=== PATIENT | female | born 1955 | race Caucasian/White ===

== ENCOUNTER 2022-10-21 10:16 | Outpatient (CLI) | payer MEDICARE, OTHER, SELFPAY ==
[2022-10-21 12:23] LABS: Cholesterol* 231 mg/dL (90-199)
[2022-10-21 12:24] LABS: HDL Cholesterol* 87 mg/dL (>=50); LDL Cholesterol Calculated 71 mg/dL (<100); Triglycerides* 367 mg/dL (40-149)
[2022-10-24 17:07] LABS: Glucose* 108 mg/dL (60-115)
== END 2022-10-21 10:17 | disposition home or self-care (01) ==
LOC: NFLDREF 10:17
PROVIDERS: PCP Internal Medicine; Visit Provider Internal Medicine
DX: Z00.00 Encounter for general adult medical examination without abnormal findings (principal); E78.5 Hyperlipidemia, unspecified; R73.03 Prediabetes; E66.01 Morbid (severe) obesity due to excess calories
CPT/HCPCS: 80061; 82947

== ENCOUNTER 2022-11-15 13:02 | Outpatient (CLI) | payer MEDICARE, OTHER, SELFPAY ==
--- NOTE | 2022-11-15 13:20 | CRLHL7_ITS ---
For Patients: As a result of the Century Cures Act, medical imaging exams and procedure reports are released immediately into your electronic medical record. You may view this report before your referring provider. If you have questions, please contact your health care provider. BILATERAL SCREENING MAMMOGRAM WITH COMPUTER-AIDED DETECTION AND TOMOSYNTHESIS TECHNIQUE: CC and MLO views were obtained. These mammographic images have been obtained using full-field digital technique. These mammographic images were interpreted with the benefit of computer-aided detection. Breast Tomosynthesis was used in this interpretation. COMPARISON FILM: 10/08/21, 08/23/20, 07/06/19. FINDINGS: There are scattered areas of fibroglandular density IMPRESSION: There is no radiographic evidence for malignancy. ASSESSMENT: BI-RADS Category 1: Negative RECOMMENDATION: Routine screening mammogram in 1 year. A lay language report of this examination will be provided to the patient. Silvestre Joseph M.D. Diagnostic/Nuclear Medicine Radiologist [email or web address] JOHN/Dictated by: Silvestre Joseph MD @ 11/18/2022 8:49:00 AM (Electronically Signed)
== END 2022-11-15 13:03 | disposition home or self-care (01) ==
LOC: MAMMO 13:04
PROVIDERS: PCP Internal Medicine; Visit Provider Internal Medicine
DX: Z12.31 Encounter for screening mammogram for malignant neoplasm of breast (principal)
CPT/HCPCS: 77063; 77067

== ENCOUNTER 2023-06-05 11:44 | Outpatient (CLI) | payer MEDICARE, OTHER, BC, SELFPAY ==
--- NOTE | 2023-06-05 13:08 | W.ANESCHARGE ---
Anesthesia Charges Start Date/Time Anesthesia Start Date: 06/05/23 Anesthesia Start Time: 12:35 Stop Date/Time Anesthesia Stop Date: 06/05/23 Anesthesia Stop Time: 13:07
--- NOTE | 2023-06-05 13:13 | W.ANESCHARGE ---
Anesthesia Charges Start Date/Time Anesthesia Start Date: 06/05/23 Anesthesia Start Time: 12:35 Stop Date/Time Anesthesia Stop Date: 06/05/23 Anesthesia Stop Time: 13:07
== END 2023-06-05 11:45 | disposition home or self-care (01) ==
LOC: OP CLINIC 11:44
PROVIDERS: PCP Internal Medicine; Visit Provider Surgery
DX: Z12.11 Encounter for screening for malignant neoplasm of colon (principal); K63.5 Polyp of colon; K57.30 Diverticulosis of large intestine without perforation or abscess without bleeding; K64.9 Unspecified hemorrhoids; Z86.010 Personal history of colon polyps
CPT/HCPCS: 00811; 45385; 88305; J2704

== ENCOUNTER 2023-10-23 09:50 | Outpatient (CLI) | payer MEDICARE, BC, SELFPAY ==
--- OUTSIDE RECORDS SUMMARY | 2023-10-24 06:15 | XMS_ITS | Clinical Summary ---
Author Name Unknown Organization [facility] Address [place], [place] [address] Care Team Providers Care Studio Operator Name Role Phone Cindi Garcia Primary Care Provider Unavail able Allergies Active Allergy Reactions Criticality Noted Date Comments Chlorpheniramine-Phenylpropan Runny Nose 2014 Medications Medication Sig Dispensed Refills Start Date End Date Status fish oil-omega-3 fatty acids (FISH OIL) 1,200-360 mg cap Take 1 capsule by mouth once daily. 0 06/25/2012 Active aspirin enteric coated 81 mg tablet Take 1 tablet by mouth once daily with a meal. 0 06/25/2012 Active Cholecalciferol, Vitamin D3, 5,000 unit tab Take by mouth once daily. 0 09/21/2013 Active albuterol HFA (PRO-AIR,VENTOLIN,PRO VENTIL) 90 mcg/actuation inhaler Inhale 1-2 Puffs by mouth every 4 hours if needed. Do not fill until patient calls 1 Inhaler 0 10/10/2014 Active hydrochlorothiazide (HCTZ) 25 mg tabletIndications:Ess ential hypertension Take 1 tablet by mouth once daily. 90 tablet 0 10/30/2015 Active lisinopril (PRINIVIL; ZESTRIL) 40 mg tabletIndications:Ess ential hypertension Take 1 tablet by mouth once daily. 90 tablet 0 10/30/2015 Active citalopram (CELEXA) 20 mg tabletIndications:Dep ression, unspecified depression type Take 2 tablets by mouth every morning. 180 tablet 0 10/30/2015 Active amLODIPine (NORVASC) 5 mg tabletIndications:Ess ential hypertension Take 1 tablet by mouth once daily. 90 tablet 0 10/30/2015 Active Active Problems Problem Noted Date Diagnosed Date Adenomatous colon polyp 07/28/2012 Overview: Colonoscopy 09/2011 polyp repeat in 5 years Back pain 12/03/2011 Vitamin D deficiency 05/13/2010 Low back pain 04/30/2010 Unspecified essential hypertension 01/25/2008 Unspecified asthma(493.90) 01/25/2008 Dysthymic disorder 01/25/2008 Unspecified sleep apnea 01/25/2008 Overview: Using cpap Immunizations Name Administration Dates Next Due AMB Influenza, IIV3 (Age >=3 years)(Flu Clinic Only) 07/18/2011 AMB Influenza, IIV4 PF (=>6 mos Flulaval,Fluzone Fluarix)(Flu Clinic Only) 07/11/2014 Hepatitis A (Adult) 09/19/1998,11/19/1996 Hepatitis B (Adult) 09/19/1998,02/24/1997,1996 Influenza, IIV3 (Age >=3 years) 06/25/2013,06/25 Tdap 12/26/2006 Family History Medical History Relation Name Comments Cancer-breast Maternal Aunt Other Mother melanoma Cancer-breast Other paternal cousi n Cancer-breast Paternal Aunt Relation Name Status Comments Father leukemia Maternal Aunt Mother Other Paternal Aunt Sister lymphoma Social History Tobacco Use Types Packs/Day Years Used Date Smoking Tobacco: Former Cigarettes Q uit: 09/22/1986 Smokeless Tobacco: Never Tobacco Cessation:Counseling Given: Yes Alcohol Use Standard Drinks/Week Comments Not Asked 5.8 (1 standard drink = 0.6 oz p ure alcohol) Sex and Gender Information Value Date Recorded Sex Assigned at Not on file Gender Identity Not on file Sexual Orientation Not on file Obstetrics History Last Filed Vital Signs Vital Sign Reading Time Taken Comments Blood Pressure 130/72 10/10/2014 2:37 PM RELATIONSHIP SPECIALIST Pulse 87 10/10/2014 1:41 PM RELATIONSHIP SPECIALIST Temperature 36.8 ??C (98.2 ??F) 10/10/2014 1:41 PM CS T Respiratory Rate - - Oxygen Saturation 95% 10/10/2014 1:41 PM RELATIONSHIP SPECIALIST Inhaled Oxygen Concentration - - Weight 122.3 kg (269 lb 9.6 oz) 10/10/2014 1:41 PM RELATIONSHIP SPECIALIST Height 174 cm (5' 8.5) 10/10/2014 1:41 PM RELATIONSHIP SPECIALIST Body Mass Index 40.39 10/10/2014 1:41 PM RELATIONSHIP SPECIALIST Plan of Treatment Health Maintenance Due Date Last Done Comments COVID-19 vaccine series (#1) [birth year]25/1956 Depression screening for age 12+ 1967 BMI (ht and wt on same day) for age 18+ 1973 Zoster (shingles) series for age 50+ (1 of 2) 2005 Mammogram for age 45-75 10/10/2015 10/10/19 15, 09/21/2013, 09/18/2012, Additional history exists Tetanus booster 12/26/2016 12/26/2006 Colonoscopy through age 75 07/24/2017 07/24/2012, Lipids for age 45-75 11/01/2019 11/01/2014, 09/21/2013, 06/25/2012, Additional history exists DEXA/DXA scan for age 65+ 2020 Pneumococcal series for age 65+ (1 of 1 - PCV) 2020 Influenza for age 65+ 05/23/2023 07/11/2014 , 06/25/2013, 06/25/2012, Additional history exists Tdap Completed 12/26/2006 Hepatitis C screening for ag e 18-79 Completed 11/01/2014 Advance Directives Documents on File Type Date Recorded Patient Analysis Specialist Expl anation Healthcare Directive 02/24/2007 [place] [facility] Care Teams Studio Operator Relationship Specialty Start Date End Date Cindi Garcia PCP - General 07/17/16
== END 2023-10-23 09:51 | disposition home or self-care (01) ==
LOC: NFLDREF 10-24 06:14
PROVIDERS: PCP Internal Medicine; Referring Provider Internal Medicine; Visit Provider Internal Medicine
DX: E78.5 Hyperlipidemia, unspecified (principal); I10 Essential (primary) hypertension; R73.03 Prediabetes
CPT/HCPCS: 80048; 80061

== ENCOUNTER 2023-11-17 12:52 | Outpatient (CLI) | payer MEDICARE, BC, SELFPAY ==
--- NOTE | 2023-11-17 13:00 | MM_ITS ---
Patient: MADHAV MCELROY Facility:?[facility] Patient ID:?[id number] Site Patient ID:?[id number]. Site :?[id number] Study:?XRay-Breast Bilateral 3D W/CAD-11/17/2023 3:16:52 PM Ordering Physician:Flaquita Dumont Final Report: BILATERAL SCREENING MAMMOGRAM WITH COMPUTER-AIDED DETECTION AND TOMOSYNTHESIS TECHNIQUE: CC and MLO views were obtained. These mammographic images have been obtained using full-field digital technique. These mammographic images were interpreted with the benefit of computer-aided detection. Breast Tomosynthesis was used in this interpretation. COMPARISON FILM: 11/15/22, 10/08/21, 08/23/20. FINDINGS: There are scattered areas of fibroglandular density. IMPRESSION: There is no radiographic evidence for malignancy. ASSESSMENT: BI-RADS Category 1: Negative RECOMMENDATION: Routine screening mammogram in 1 year. A lay language report of this examination will be provided to the patient. Kavon Estrada M.D. Diagnostic Radiologist [email or web address] DSM/sp R& Transcribed: 4:38 p.m. SP/Dictated by: Kavon Estrada MD @ 11/18/2023 8:33:00 AM Signed by:?Kavon Estrada MD @11/19/2023 5:27:59 AM (Electronic Signature)
== END 2023-11-17 12:53 | disposition home or self-care (01) ==
LOC: MAMMO 12:53
PROVIDERS: PCP Internal Medicine; Visit Provider Internal Medicine
DX: Z12.31 Encounter for screening mammogram for malignant neoplasm of breast (principal)
CPT/HCPCS: 77063; 77067

== ENCOUNTER 2024-11-11 09:30 | Outpatient (CLI) | payer MEDICARE, BC, SELFPAY | END 2024-11-11 09:31 | disposition home or self-care (01) | LOC: NFLDREF 11-15 20:27 | PROVIDERS: PCP Internal Medicine; Referring Provider Internal Medicine; Visit Provider Internal Medicine | DX: E78.5 Hyperlipidemia, unspecified (principal); R73.03 Prediabetes; I10 Essential (primary) hypertension | CPT/HCPCS: 80048; 80061 ==

== ENCOUNTER 2025-02-11 14:49 | Outpatient (CLI) | payer MEDICARE, BC, SELFPAY ==
--- NOTE | 2025-02-11 15:00 | CRLHL7_ITS ---
For Patients: As a result of the Century Cures Act, medical imaging exams and procedure reports are released immediately into your electronic medical record. You may view this report before your referring provider. If you have questions, please contact your health care provider. INDICATION: BILATERAL SCREENING MAMMOGRAM, ASYMPTOMATIC 69 Y/O FEMALE COMPARISON: 11/17/2023, 11/15/2022, 10/08/2021 TECHNIQUE: Digital mammogram in CC and MLO projections including computer-aided detection (CAD) and tomosynthesis. BREAST COMPOSITION: There are scattered areas of fibroglandular density. FINDINGS: No suspicious findings. ASSESSMENT: BI-RADS 1 Negative RECOMMENDATION: Annual screening mammogram. A lay language report of this examination will be provided to the patient. Dictated by: Kavon Estrada MD @ 02/15/2025 09:03:31 (Electronically Signed)
== END 2025-02-11 14:50 | disposition home or self-care (01) ==
LOC: MAMMO 14:50
PROVIDERS: PCP Internal Medicine; Visit Provider Internal Medicine
DX: Z12.31 Encounter for screening mammogram for malignant neoplasm of breast (principal)
CPT/HCPCS: 77063; 77067

== ENCOUNTER 2025-05-17 11:00 | Outpatient (RCR) | payer MEDICARE, BC, SELFPAY ==
--- NOTE | 2024-12-07 11:24 | PT.OPEX ---
PT [place] Outpatient Eval PT [facility] Outpatient Eval Start: 12/07/24 07:08 Freq: Status: Active Protocol: Document 12/07/24 07:08 MLS (Rec: 12/07/24 11:23 MLS [id number]) E-signed By Brooke Thao DPT Physical Therapy Outpatient Evaluation Insurance Information Recert Due Date 03/06/25 Insurance Name Medicare B,Blue Cross/Blue Shield Medical Diagnosis N39.46 mixed incontinence Treating Diagnosis Mixed incontinence - stress and urge Core strengthening LBP at times Hip tightness B Referring MD Dr. Adair Partida Preferred Name Marleen Partida Patient is a 69 year old female who presents to physical therapy with signs and symptoms consistent with mixed incontinence. She states that she is always kind of damp. She states that she wears panties with liners . She states that sometimes she wakes up and her pants are damp. She states that sometimes when she moves from sit to stand after sitting a long time and has to go right away. Urinary- Leakage (day/night):7, 1 in evening Protection worn: panty with built in liner - knix Severity of leakage (amount): small Activity that causes leakage ( laughing, coughing, sneezing, garcia in door, running water etc): sometimes w laugh/cough/ sneeze, increased after sitting for long time and moves to stand Delay of urination: no Urinary urgency (any incontinence): yes Strain to start/stop urine stream: sometimes Hydration/fluid intake: 2 cups coffee, water 8 cups Daytime urination (how often): 8 Nocturia: 1 Dysuria (pain w urination): no Post-void dribble: sometimes Pressure/heaviness: no Triggers: sitting for long period of time and moves to stand Observation (color, odor, burning, blood, weak stream): no Bowel- Frequency: once a day Amelia chart: 3-4 Constipation/Diarrhea: sometimes Observation (mucus. blood): no Do you feel bowels fully evacuate with BM: yes and no, hemorrhoids all the time Fecal leakage: no Fecal urgency: no Protection used: no Straining with BM: no Pain with BM: yes - hemorrhoids (constant) Do you use pressure with hands to assist with BM: no Flatus incontinence: no Abdominal/rectal pain or symptoms: no Do foods increase or decrease symptoms: unsure Do you take bowel supplements/ laxatives: no Fiber intake: lots of fiber in diet Diet/food intolerances: no Sexual- Are you sexually active: no Menstrual History- Date of last period: mid fifties Painful periods (clotting): no Regular cycles (how long):yes Changes in symptoms correlated to cycle: no Changes after menopause: took a long time, some heavy bleeding, hot flashes Menopause age: fifties - Number of pregnancies: 2 Number of deliveries: 1 Vaginal or : vaginal Other complications: no Other- Pain with gynecological exam: last few times, never prior to that Any chronic yeast infections: not for long time Chronic UTIs: no STIs: no Vaginal dryness: no Meds taken for bladder or diuretics: no PMHx- HBP, metal implants(foot ), allergy induced asthma Current exercise- no Orthopedic issues-low back pain many years, increases with walking Pain Comments Today: low back 0/10 on a 0-10 pain scale with 10 = extreme pain At its worst: 9-10/10 At its best: 0/10 Current Work Status Retired Precautions Weight Bearing Status Full Weight Bearing Therapy Limitations/Systems Review Not Limited Objective Other/Pertinent Objective Movement screen- SLS: no increase in pain Lumbar Posture: lordotic Pelvic Posture (ASIS/PSIS sup/ inf, rotation Ant/Pst): Ant rot Sacral Posture (forward/ backward torsion): WNL Hip PROM: min dec with ER and IR B LUMBAR ROM: Flexion: WNL Extension: min dec Right Sidebend: min dec Left Sidebend: min dec Right Rotation: WNL Left Rotation: WNL LE MMT Hip flexion: R 4+/5 L 4+/5 Hip Extension: R 4+/5 L 4+/5 Hip abduction: R 4+/5 L 4+/5 knee extension: R 5/5 L 5/5 Knee Flexion: R 5/5 L 5/5 Other tests: Coordination: decreased contraction Breathing: chest/neck breathing. decreased posterior and lateral ribcage mvmt with inhalation Linea Alba: doming SPECIAL TESTS Straight leg raise: no pain Crossed straight leg raise: no pain Slump test: no pain Quadrant test: no pain SI tests Distraction: WNL Compression: WNL Sacral Thrust: WNL Standing forward bend Test: WNL HIP (R/L): SU: neg B FADIR: neg B Lorraines Test: neg Posterior impingement Test: neg Boone compression Test: neg B Access Code: [email or web address] URL: [email or web address] Date: 12/07/2024 Prepared by: Brooke Thao Exercises - Supine Lower Trunk Rotation - 1 x daily - 7 x weekly - 3 sets - 10 reps - Supine Single Knee to Double Knee to Chest Stretch - 1 x daily - 7 x weekly - 3 sets - 10 reps - Supine Figure 4 Piriformis Stretch - 1 x daily - 7 x weekly - 3 sets - 10 reps Functional Test Performed & Score Pelvic Floor Questionnaire Bladder 34 Bowel 0/15 Prolapse 0/40 Sexual function Assessment Assessment/Impression Pt is a 69 year old female who presents with concerns of mixed incontinence. Patient also has notable objective findings including limited ROM , tenderness to palpation, and decreased strength which are also likely contributing to the problem. Patient is a good candidate for skilled therapy to target deficits described above. Skilled PT intervention is necessary for use of therapeutic exercise manual therapy, neuromuscular re- education, gait training, and therapeutic activity. Functional impairments include difficulty with: standing, walking, exercising and ADLS. See appropriate sections of PT eval for complete list of goals and POC. D/C plan and criteria is for pt to achieve the goals as listed below or until max rehab potential is met. Pt was agreeable with plan of care and goals established. Primary Functional Limitations standing walking exercising ADLS Plan of Care Rehabilitation Potential Good Physical Therapy Goals URINE INCONTINENCE / WEAKNESS GOALS STG (within 4-6 weeks) 1) Pt will demonstrate proper coordination of motor recruitment patterns for PF then TA activation during isometric activation while maintaining diaphragmatic breathing pattern 2)Pt will recall at least 4 strategies to improve pressure management in order to reduce instances of incontinence outside PT sessions 3) Pt will report reduced urinary leakage episodes no more than once per day for improved health of vaginal tissues LTG (within 10-12 weeks) 1) Pt will demonstrate proper coordination of motor recruitment patterns for PF then TA activation during dynamic UE/LE movements in all postures while maintaining diaphragmatic breathing pattern 2)Pt will demonstrate ability to complete at least 10 quick contractions of PFM with full relaxation between reps in order to reduce incontinence with increases in IAP 3) Pt will demonstrate improved PFM contraction of at least 4/5 on Laycock scale 4) Pt will report reduced urinary leakage episodes no more than two per week for improved health of vaginal tissues 5)Pt will report absent urinary leakage with cough, sneeze, jump. 6) Pt will demonstrate PFQ subscale score 50> for improved quality of life. Coordination/Communication With Referral Source Treatment Plan/Direct Interventions Biofeedback,Manual Therapy, Neuromuscular Re-ed, Therapeutic Activities, Therapeutic Exercises Patient Will Be Discharged From Therapy Independently Progressing Evaluation Billing Untimed Code Treatment Minutes 45 Complexity Low Certification Information Provider Signature Required Yes Provider Signature Shows Agreement With POC & Medical Necessity Physician NPI Number Write NPI# Here Physician Comment/Change : Physician Signature & Date Requested Please Sign/Date Here
== END 2025-07-25 16:34 | disposition home or self-care (01) ==
PROVIDERS: PCP Internal Medicine; Visit Provider Internal Medicine
DX: N39.46 Mixed incontinence (principal); Z51.89 Encounter for other specified aftercare
CPT/HCPCS: 97110; 97140; 97161; 97530

== ENCOUNTER 2025-07-09 12:18 | Emergency (ER) | payer MEDICARE, BC, SELFPAY ==
--- OUTSIDE RECORDS SUMMARY | 2025-07-09 12:21 | XMS_ITS | Clinical Summary ---
Author Organization [employer] Address [facility] [place] [address] Care Team Providers Care Machine Greaser Name Role Phone Pcp, No Primary Care Provider Unavailabl e Allergies Active Allergy Reactions Criticality Noted Date Comments Chlorpheniramine-Phenylpropan Runny Nose 2014 Medications fish oil-omega-3 fatty acids (FISH OIL) 1,200-360 mg cap Take 1 capsule by mouth once daily. 0 2 Active aspirin enteric coated 81 mg tablet Take 1 tablet by mouth once daily with a meal. 0 2 Active Cholecalciferol, Vitamin D3, 5,000 unit tab Take by mouth once daily. 0 3 Active albuterol HFA (PRO-AIR,VENTOLIN ,PROVENTIL) 90 mcg/actuation inhaler Inhale 1-2 Puffs by mouth every 4 hours if needed. Do not fill until patient calls 1 Inhaler 0 5 Active hydrochlorothiazi de (HCTZ) 25 mg tabletIndications :Essential hypertension Take 1 tablet by mouth once daily. 90 tablet 0 6 Active lisinopril (PRINIVIL; ZESTRIL) 40 mg tabletIndications :Essential hypertension Take 1 tablet by mouth once daily. 90 tablet 0 6 Active citalopram (CELEXA) 20 mg tabletIndications :Depression, unspecified depression type Take 2 tablets by mouth every morning. 180 tablet 0 02/08/201 6 Active amLODIPine (NORVASC) 5 mg tabletIndications :Essential hypertension Take 1 tablet by mouth once daily. 90 tablet 0 6 Active Active Problems Problem Noted Date Diagnosed Date Adenomatous colon polyp 07/28/2012 Overview (07/28/2012): Colonoscopy 09/2011 polyp repeat in 5 years Back pain 12/03/2011 Vitamin D deficiency 05/13/2010 Low back pain 04/30/2010 Unspecified essential hypertension 01/25/2008 Unspecified asthma(493.90) 01/25/2008 Dysthymic disorder 01/25/2008 Unspecified sleep apnea 01/25/2008 Overview (10/10/2014): Using cpap Immunizations Immunization Administration Dates Next Due AMB Influenza, IIV3 [...] drink = 0.6 oz p ure alcohol) Comments No Sex and Gender Information Value Date Recorded Sex Assigned at Not on file Legal Sex Female 6:21 AM DRY CLEANING MANAGER Gender Identity Not on file Sexual Orientation Not on file 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 Not on file Not on file Not on f ile Obstetrics History Last Filed Vital Signs Vital Sign Reading Time Taken Comments Blood Pressure 130/72 10/10/2014 2:37 PM DRY CLEANING MANAGER Pulse 87 10/10/2014 1:41 PM DRY CLEANING MANAGER Temperature 36.8 C (98.2 F) 10/10/2014 1:41 PM DRY CLEANING MANAGER Respiratory Rate - - Oxygen Saturation 95% 10/10/2014 1:41 PM DRY CLEANING MANAGER Inhaled Oxygen Concentration - - Weight 122.3 kg (269 lb 9.6 oz) 10/10/2014 1:41 PM DRY CLEANING MANAGER Height 174 cm (5' 8.5) 10/10/2014 1:41 PM DRY CLEANING MANAGER Body Mass Index 40.39 10/10/2014 1:41 PM DRY CLEANING MANAGER Plan of Treatment Health Maintenance Due Date Last Done Comments Depression screening for age 12+ 1967 BMI (ht and wt on same day) for age 18+ 1973 Pneumococcal series for age 50+ (1 of 1 - PCV) 2005 Zoster (shingles) series for age 50+ (1 of 2) 2005 Mammogram for age 45-75 10/10/2015 10/10/19 15, 09/21/2013, 09/18/2012, Additional history exists Tetanus booster 12/26/2016 12/26/2006 Colonoscopy through age 75 07/24/2017 07/24/2012, Lipids for age 45-75 11/01/2019 11/01/2014, 09/21/2013, 06/25/2012, Additional history exists DEXA/DXA scan for age 65+ 2020 COVID-19 vaccine series ( season) 2025 Influenza Vaccine (#1) 2025 4, 06/25/2013, 06/25/2012, Additional history exists RSV vaccine for adults or (1 - 1-dose 75+ series) 2030 Hepatitis B series for 19+ Completed 09/19, 02/24/1997, 11/19/1996 Hepatitis C screening for ag e 18-79 Completed 11/01/2014 Procedures Procedure Name Priority Date/Time Associated Diagnosis Comments ANTI HCV Routine 11/01/2014 7:46 AM DRY CLEANING MANAGER Need for hepatitis C screening test LIPID PANEL W REFLEX MEASURED LDL Routine 11/01/2014 7:46 AM DRY CLEANING MANAGER HYPERTENSION XR MAMMO BILAT SCREEN FFDM (IA) Routine 10/10/2014 1:32 PM DRY CLEANING MANAGER Other screening mammogram from Last 3 Months or Most Recently Relevant to Health Maintenance Results * (ABNORMAL) LIPID PANEL W REFLEX MEASURED LDL (11/01/2014 7:46 AM DRY CLEANING MANAGER) CHOLESTEROL,TOTAL 301(H) 100 - 199 mg/dL 11/01/2014 8:47 AM DRY CLEANING MANAGER [facility] TRIGLYCERIDES 233(H) <150 mg/dL 11/01/2014 8:47 AM DRY CLEANING MANAGER [facility] HDL CHOLESTEROL 70 >40 mg/dL 5 8:47 AM DRY CLEANING MANAGER [facility] NON-HDL CHOLESTEROL 231(H) <145 mg/dl 11/01/2014 8:47 AM DRY CLEANING MANAGER [facility] CHOL/HDL RATIO 4.30 <4.50 11/01/2014 8:47 AM DRY CLEANING MANAGER [facility] LDL CHOLESTEROL 184(H) <=130 mg/dL 11/01/2014 8:47 AM DRY CLEANING MANAGER [facility] PATIENT STATUS FASTING 11/01/2014 8:47 AM DRY CLEANING MANAGER [facility] Blood specimen (specimen) BLOOD SPECIMEN / Unknown Venipuncture / Unknown 11/01/2014 7:46 AM DRY CLEANING MANAGER 11/01/2014 7:46 AM DRY CLEANING MANAGER Brittaney Stewart CHEMISTRY Final R esult [facility] [address] [place] [address], * ANTI HCV (11/01/2014 7:46 AM DRY CLEANING MANAGER) HEPATITIS C ANTIBODY Non-Reacti ve Non-Reacti ve 11/01/2014 1:50 PM DRY CLEANING MANAGER [facility] Blood specimen (specimen) BLOOD SPECIMEN / Unknown Venipuncture / Unknown 11/01/2014 7:46 AM DRY CLEANING MANAGER 11/01/2014 7:46 AM DRY CLEANING MANAGER Narrative [facility] - 11/01/2014 1:50 PM DRY CLEANING MANAGER Antibodies to HCV not detected; does not exclude the possibility of exposure to HCV. us Brittaney Stewart SEND OUTS Final R esult [facility] [address] [place] [address], [place] * XR MAMMO BILAT SCREEN FFDM (10/10/2014 1:32 PM DRY CLEANING MANAGER) Anatomical Region Laterality Modality BREASTS, Breast Left, Breast Right Bilateral Mammography Impressions 10/11/2014 12:21 PM DRY CLEANING MANAGER There is no radiographic evidence for malignancy. Recommend annual mammograms. A lay language report of this examination will be provided to the patient. MAMMOGRAM ASSESSMENT: ACR 1 Negative Narrative 10/11/2014 12:21 PM DRY CLEANING MANAGER XR MAMMO BILAT SCREEN FFDM [G0202.0] CLINICAL HISTORY: This is an asymptomatic 59 y.o. patient. INDICATION FOR EXAM: Mammogram Screening. TECHNIQUE: CC & MLO views were obtained. This digital study was evaluated with the assistance of Computer-Aided Detection. COMPARISON FILM: Yes 09/21/13 [facility] 09/18/12 [facility] FINDINGS: Mammographically, the breast tissue has scattered fibroglandular densities. There are no dominant masses, suspicious micro calcifications or areas of architectural distortion. Procedure Note Randy Gonzales MD - 10/11/2014 XR MAMMO BILAT SCREEN FFDM [G0202.0] CLINICAL HISTORY: This is an asymptomatic 59 y.o. patient. INDICATION FOR EXAM: Mammogram Screening. TECHNIQUE: CC & MLO views were obtained. This digital study was evaluatedwith the assistance of Computer-Aided Detection. COMPARISON FILM: Yes 09/21/13 [facility] 09/18/12 [facility] FINDINGS: Mammographically, the breast tissue has scatteredfibroglandular densities. There are no dominant masses, suspicious microcalcifications or areas of architectural distortion. IMPRESSION: There is no radiographic evidence for malignancy. Recommendannual mammograms. A lay language report of this examination will be provided to the patient. MAMMOGRAM ASSESSMENT: ACR 1 Negative Brittaney Stewart MAMMO Final R esult from Last 3 Months or Most Recently Relevant to Health Maintenance Insurance [place] [id number] [facility] [place] Advance Directives Documents on File Type Date Recorded Patient Stage Set Designer Expl anation Healthcare Directive 02/24/2007 [place] [facility] [place]07 Care Teams Machine Greaser Relationship Specialty Start Date End Date Pcp, No . PCP - General 09/28/24
[2025-07-09 12:50] VITALS: BP 149/76; PULSE 82; RESP 20; TEMP 36.3; O2SAT 95; BMI 41.1
--- NOTE | 2025-07-09 13:05 | CRLHL7_ITS ---
For Patients: As a result of the Cures Act, medical imaging exams and procedure reports are released immediately into your electronic medical record. You may view this report before your referring provider. If you have questions, please contact your health care provider. Indication: Gout Technique: Left 1st toe 3 views. Comparison: None. Findings: Bones: Screw transfixing the 1st TMT joint is fractured. Two additional screws within the midfoot transfixing the medial cuneiform and base of the 2nd metatarsal and the lateral cuneiform and base of the 3rd metatarsal is intact with no perihardware lucency to suggest hardware loosening.. Joint spaces: Moderate 1st MTP joint space narrowing and juxta-articular osteophytosis/tiny erosions. Remainder of the IP joints demonstrate mild joint space narrowing. Additional mild degenerative changes within the midfoot which is partially visualized. Soft tissues: Soft tissue swelling of the medial foot. No unintended radiopaque foreign body. Impression: 1. Moderate 1st MTP joint space narrowing and juxta-articular osteophytosis/tiny erosions. Differential include degenerative versus inflammatory arthritis. 2. Remainder of the IP joints demonstrate mild osteoarthritis. 3. Screw transfixing the 1st TMT joint is fractured. Two additional screws within the midfoot are intact without complication. Dictated by Young Gary MD @ 07/09/2025 2:31:40 PM (Electronically Signed)
[2025-07-09] MEDS: LIDOCAINE/EPINEP/TETRACAINE 3 ML GEL..ML. TOPICAL (13:35)
--- NOTE | 2025-07-09 14:03 | ED.LOWEXIN ---
HPI - Extremity Injury (Lower) General Date Seen: 07/09/25 Chief Complaint: Extremity Pain/Injury, Lower Stated Complaint: Gout, left foot Time Seen by Provider: 07/09/25 12:31 Source: patient Mode of arrival: ambulatory Limitations: no limitations History of Present Illness HPI Narrative: This delightful 69-year-old female presents here with a swelling on her left great toe, she was seen in urgent care, 3 days ago she was prescribed Augmentin, and to soak foot. She had a popped blister she describes, continues to have pain with suggested she may have gout so she is here today she herself does remember any gout, no history of other injury she denies any diabetes, but pre diabetes, she has no history of any other immunosuppressive condition. Other symptoms: none Treatments prior to arrival: cold therapy and heart therapy Related Data Home Medications ?Medication ?Instructions ?Recorded ?Confirmed cholecalciferol (vitamin D3) 125 5,000 unit PO DAILY 10/24/22 07/09/25 mcg (5,000 unit) tablet diphenhydramine HCl 25 mg capsule 25 mg PO .Bedtime PRN 10/24/22 07/09/25 omega-3 fatty acids 1,000 mg 1,000 mg PO QDAY 10/24/22 07/09/25 capsule Previous Rx's ?Medication ?Instructions ?Recorded amlodipine 5 mg tablet 5 mg PO QDAY #90 tabs 11/23/24 citalopram 40 mg tablet 40 mg PO QDAY #90 tabs 11/23/24 hydrochlorothiazide 25 mg tablet 25 mg PO QDAY #90 tabs 11/23/24 lisinopril 10 mg tablet 10 mg PO QDAY #90 tabs 11/23/24 omeprazole 20 mg capsule,delayed 20 mg PO QDAY #90 caps 11/23/24 release simvastatin 10 mg tablet 10 mg PO QHS #90 tabs 11/23/24 albuterol sulfate 90 mcg/actuation 2 puff inhalation Q4H PRN 02/22/25 aerosol inhaler shortness of breath or wheezing #8.5 grams amoxicillin 875 mg-potassium 1 tab PO BID 7 days #14 tabs 07/07/25 clavulanate 125 mg tablet amoxicillin 875 mg-potassium 1 tab PO BID #14 tabs 07/09/25 clavulanate 125 mg tablet Allergies Allergy/AdvReac Type Severity Reaction Status Date / Time cat dander Allergy Intermediate Verified 07/09/25 12:58 grass pollen Allergy Verified 07/09/25 12:58 dust Allergy Intermediate Uncoded 07/07/25 16:01 pollen Allergy Intermediate Uncoded 07/07/25 16:01 Review of Systems Status of ROS: Reports: 10 or more systems reviewed and unremarkable except as noted in History and below [facility] Medical History History of avascular necrosis of capital femoral epiphysis ?Z87.39 - Personal history of other diseases of the musculoskeletal system and connective tissue (ICD-10) Gastrointestinal hemorrhage due to nonsteroidal antiinflammatory drug ?K92.2 - Gastrointestinal hemorrhage, unspecified (ICD-10) ?T39.395A - Adverse effect of other nonsteroidal anti-inflammatory drugs [NSAID], initial encounter (ICD-10) Surgical History History of tonsillectomy ?Z90.89 - Acquired absence of other organs (ICD-10) History of fracture of foot (10/02/18) ?Z87.81 - Personal history of (healed) traumatic fracture (ICD-10) Social History Smoking Status: Former smoker Second hand tobacco smoke exposure: No How often do you have a drink containing alcohol: 4 or more times a week How many standard drinks containing alcohol do you have on a typical day: 1 or 2 AUDIT-C Alcohol total score: 4 Non-prescribed substance use: denies use Exam Narrative: Exam Narrative: On examination she is in no apparent distress she is pleasant alert examination of her left great toe, at the IP flexion area medially there is evidence overt and close to her nail of what I would describe as a para knee garcia eye, with almost pus, she does not actually have a blister but she which she has is the top layer of skin is denuded off. Good cap refill good sensation her IP flexion is entirely normal. Both active and passive. Const: Vital Signs, click to edit/add: Vital Signs - 24 hr 07/09/25 12:50 Temperature 97.3 F L Pulse Rate [Pulse Oximeter] 82 Respiratory Rate 20 Blood Pressure [Ri ght Upper Arm] 149/76 H Pulse Oximetry 95 Oxygen Delivery Me thod Room Air Course Course ED Course: Let was applied to her toe, over the point of most fluctuance, sterilely, 1% lidocaine with epinephrine was infused, then I was able to incise this for 1 cm linear incision, that relieved approximately 4-5 cc of pus. She felt a lot better, bacitracin dry dressing was applied. Culture was done. We will send her home. Vital Signs Vital signs: Initial Vital Signs Temperature 97.3 F L 07/09/25 12:50 Temperature Source Temporal Artery Scan 07/09/25 12:50 Pulse Rate 82 07/09/25 12:50 Pulse Rhythm Regular 07/09/25 12:50 Respiratory Rate 20 07/09/25 12:50 Blood Pressure 149/76 H 07/09/25 12:50 Blood Pressure Mean 100 07/09/25 12:50 Blood Pressure Position Sitting 07/09/25 12:50 Pulse Oximetry 95 07/09/25 12:50 Oxygen Delivery Method Room Air 07/09/25 12:50 Vital Signs Temperature 97.3 F L 07/09/25 12:50 Pulse Rate 82 07/09/25 12:50 Respiratory Rate 20 07/09/25 12:50 Blood Pressure 149/76 H 07/09/25 12:50 Pulse Oximetry 95 07/09/25 12:50 Oxygen Delivery Method Room Air 07/09/25 12:50 Temperature 97.3 F L 07/09/25 12:50 Pulse Rate 82 07/09/25 12:50 Respiratory Rate 20 07/09/25 12:50 Blood Pressure 149/76 H 07/09/25 12:50 Pulse Oximetry 95 07/09/25 12:50 Oxygen Delivery Method Room Air 07/09/25 12:50 Medications Administered Medications: Discontinued Medications Generic Name Dose Route Start Last Admin Trade Name Freq PRN Reason Stop Dose Admin Lidocaine/Epinephrine/Tetracaine 3 ml 07/09/25 13:28 07/09/25 13:35 Lidocaine/Epinep/Tetracaine 3 Ml Gel..Ml. TOPICAL 07/09/25 13:29 3 ml ONCE ONE Administration MDM - Extremity Injury (Lower) MDM Narrative Medical decision making narrative: Consideration of a fracture of her toe, gout, joint infection, paronychia, felon, or other abnormality. We will go ahead and get an x-ray, I will numb the area and we will incise it is, and see if we can get some pus out give her some relief. Imaging Data Toe x-ray: Attestation: I have reviewed the pertinent imaging results. My impression: There appears to be an area of in the soft tissue of a fluid collection, that might be the paronychia, we will wait for radiologic over-read. Radiologist's impression: [place] [address] Diagnostic Imaging Report Patient: Osiris Zhou MR#: [id number] : 1955 Acct:[id number] Loc: ED Service Date: 07/09/[address]: Ordering Physician: Luiz Roa M.D. Date of Service: 07/09/25 Procedure(s): XR great toe LT Accession Number(s): [id number] cc: Flaquita Borrero M.D.; Luiz Roa M.D.~ For Patients: As a result of the Cures Act, medical imaging exams and procedure reports are released immediately into your electronic medical record. You may view this report before your referring provider. If you have questions, please contact your health care provider. Indication: Gout Technique: Left 1st toe 3 views. Comparison: None. Findings: Bones: Screw transfixing the 1st TMT joint is fractured. Two additional screws within the midfoot transfixing the medial cuneiform and base of the 2nd metatarsal and the lateral cuneiform and base of the 3rd metatarsal is intact with no perihardware lucency to suggest hardware loosening.. Joint spaces: Moderate 1st MTP joint space narrowing and juxta-articular osteophytosis/tiny erosions. Remainder of the IP joints demonstrate mild joint space narrowing. Additional mild degenerative changes within the midfoot which is partially visualized. Soft tissues: Soft tissue swelling of the medial foot. No unintended radiopaque foreign body. Impression: 1. Moderate 1st MTP joint space narrowing and juxta-articular osteophytosis/tiny erosions. Differential include degenerative versus inflammatory arthritis. 2. Remainder of the IP joints demonstrate mild osteoarthritis. 3. Screw transfixing the 1st TMT joint is fractured. Two additional screws within the midfoot are intact without complication. Dictated by Young Gary MD @ 07/09/2025 2:31:40 PM (Electronically Signed) Discharge Plan Discharge Clinical Impression: Paronychia Patient Disposition: Home, Self-Care Condition: Improved Additional Instructions: Home rest, soaking this twice a day in salt water would be appropriate, taking her antibiotics have given you 7 days more follow-up in 2-3 days, that gets worse i.e. redness comes up to toe then come back here. Fevers chills or other issue Daily dressing changes, with bacitracin , ,maybe dancing on the weekend coming up Activity Level: Light activity Prescriptions: New amoxicillin-pot clavulanate 875-125 mg tablet 1 tab PO BID Qty: 14 0RF No Action cholecalciferol (vitamin D3) 125 mcg (5,000 unit) tablet 5,000 unit PO DAILY diphenhydramine HCl 25 mg capsule 25 mg PO .Bedtime PRN omega-3 fatty acids 1,000 mg capsule 1,000 mg PO QDAY amoxicillin-pot clavulanate 875-125 mg tablet 1 tab PO BID 7 Days Qty: 14 0RF hydrochlorothiazide 25 mg tablet 25 mg PO QDAY Qty: 90 3RF lisinopril 10 mg tablet 10 mg PO QDAY Qty: 90 3RF omeprazole 20 mg capsule,delayed release(DR/EC) 20 mg PO QDAY Qty: 90 3RF simvastatin 10 mg tablet 10 mg PO QHS Qty: 90 3RF citalopram 40 mg tablet 40 mg PO QDAY Qty: 90 3RF amlodipine 5 mg tablet 5 mg PO QDAY Qty: 90 3RF albuterol sulfate 90 mcg/actuation HFA aerosol inhaler 2 puff inhalation Q4H PRN (Reason: shortness of breath or wheezing) Qty: 8.5 2RF Follow Up/Referrals: Flaquita Borrero MD [Primary Care Provider, Internal Medicine] Stand Alone Forms: [employer] Info Instructions
== END 2025-07-09 15:14 | disposition home or self-care (01) ==
PROVIDERS: Emergency Provider Family Medicine; PCP Internal Medicine
DX: L03.032 Cellulitis of left toe (principal)
CPT/HCPCS: 10060; 73660; 87070; 99283; 99284

== ENCOUNTER 2025-09-06 14:58 | Emergency (ER) | payer MEDICARE, BC, SELFPAY ==
--- OUTSIDE RECORDS SUMMARY | 2025-09-06 15:00 | XMS_ITS | Clinical Summary ---
Author Organization [facility] Address [address] [place] [address] Care Team Providers Care Packaging Designer Name Role Phone Pcp, No Primary Care Provider Unavailabl e Allergies Active AllergyReactionsCriticalityNoted DateComments Chlorpheniramine-PhenylpropanRunny Nose10/10/2014 Medications MedicationSigDispense QuantityRefillsLast FilledStart DateEnd DateStatus fish oil-omega-3 fatty acids (FISH OIL) 1,200-360 mg cap Take 1 capsule by mouth once daily.ctive aspirin enteric coated 81 mg tablet Take 1 tablet by mouth once daily with a meal.ctive Cholecalciferol, Vitamin D3, 5,000 unit tab Take by mouth once daily.ctive albuterol HFA (PRO-AIR,VENTOLIN,PROVENTIL) 90 mcg/actuation inhaler Inhale 1-2 Puffs by mouth every 4 hours if needed. Do not fill until patient calls 1 Inhaler ctive hydrochlorothiazide (HCTZ) 25 mg tablet Indications:Essential hypertensionTake 1 tablet by mouth once daily. 90 tablet Active lisinopril (PRINIVIL; ZESTRIL) 40 mg tablet Indications:Essential hypertensionTake 1 tablet by mouth once daily. 90 tablet Active citalopram (CELEXA) 20 mg tablet Indications:Depression, unspecified depression typeTake 2 tablets by mouth every morning. 180 tablet Active amLODIPine (NORVASC) 5 mg tablet Indications:Essential hypertensionTake 1 tablet by mouth once daily. 90 tablet Active Active Problems ProblemNoted DateDiagnosed DateAdenomatous colon polyp07/28/2012 Overview (07/28/2012): Colonoscopy 09/2011 polyp repeat in 5 years Back pain12/03/2011Vitamin D falxdqlvxx53/22/2010Low back pain04/30/2010 Unspecified essential buvtvstmslyy92/05/2008Unspecified asthma(493.90)01/25/2008 Dysthymic vqxyllsd25/05/2008Unspecified sleep apnea01/25/2008 Overview (10/10/2014): Using cpap Immunizations ImmunizationAdministration DatesNext DueAMB Influenza, IIV3 (Age >=3 years)(Flu Clinic Only)07/18/2011MB Influenza, IIV4 PF (=>6 mos Flulaval,Fluzone Fluarix)(Flu Clinic Only)07/11/2014Hepatitis A (Adult)09/19/1998,11/19/1996 Hepatitis B (Adult)09/19/1998,02/24/1997,11/19/1996Influenza, IIV3 (Age >=3 years)06/25/2013,06/25/2012Tdap12/26/2006 Family History Medical HistoryRelationNameCommentsCancer-breastMaternal AuntOtherMothermelanoma Cancer-breastOtherpaternal cousinCancer-breastPaternal AuntRelationNameStatus CommentsFatherDeceasedleukemiaMaternal AuntMotherDeceasedOtherPaternal Aunt SisterDeceasedlymphoma Social History Tobacco UseTypesPacks/DayYears UsedDateSmoking Tobacco: DwizbpLeyxzqluyj9Jbho: 09/22/1986Smokeless Tobacco: Never Tobacco Cessation:Counseling Given: Yes Alcohol UseStandard Drinks/WeekCommentsNot Asked5.8 (1 standard drink = 0.6 oz pure alcohol)CommentsNoSex and Gender InformationValueDate RecordedSex Assigned at BirthNot on fileLegal MieXnshgq94/14/2013 6:21 AM CSTGender Identity Not on fileSexual OrientationNot on fileOccupationIndustryJob Start DateJob End Datemortgage specialistNot on fileNot on fileNot on file Last Filed Vital Signs Vital SignReadingTime TakenCommentsBlood Fvwlxlcb264/72010/10/2014 2:37 PM REGULATORY COMPLIANCE ENGINEER Lpfvq191110/10/2014 1:41 PM VANHqinjrwhgyu27.8 ??C (98.2 ??F)10/10/2014 1:41 PM CSTRespiratory Rate--Oxygen Bwtvehdnjy99%10/10/2014 1:41 PM CSTInhaled Oxygen Concentration--Eqtwog533.3 kg (269 lb 9.6 oz)10/10/2014 1:41 PM UUCRltmes783 cm (5' 8.5)10/10/2014 1:41 PM CSTBody Mass Index40.39010/10/2014 1:41 PM REGULATORY COMPLIANCE ENGINEER Plan of Treatment Health MaintenanceDue DateLast DoneCommentsDepression screening for age 12+ 1967BMI (ht and wt on same day) for age 18+1973Pneumococcal series for age 50+ (1 of 1 - PCV)2005Zoster (shingles) series for age 50+ (1 of 2)2005Mammogram for age 45-7501//, 09/21/2013, 09/18/2012, Additional history existsTetanus pvmroma14/06//02/2007Colonoscopy through age 7511//, 07/24/2012Lipids for age 45-7502/, 09/21/2013, 06/25/2012, Additional history existsDEXA/DXA scan for age 65+ 2020COVID-19 vaccine series (1 - 2024- season)2025Influenza Vaccine (#1), 06/25/2013, 06/25/2012, Additional history existsRSV vaccine for adults or (1 - 1-dose 75+ series)2030 Hepatitis B series for 19+Onewhmdrz96/29/1998, 02/24/1997, 11/19/1996Hepatitis C screening for age 18-29Kmaqqlaeq51/10/2015 Procedures Procedure NamePriorityDate/TimeAssociated DiagnosisCommentsANTI HCVRoutine 11/01/2014 7:46 AM REGULATORY COMPLIANCE ENGINEER Need for hepatitis C screening test LIPID PANEL W REFLEX MEASURED VRCGgpjqdz19/10/2015 7:46 AM REGULATORY COMPLIANCE ENGINEER HYPERTENSION XR MAMMO BILAT SCREEN FFDM (IA)Sfpubrr3310/10/2014 1:32 PM REGULATORY COMPLIANCE ENGINEER Other screening mammogram from Last 3 Months or Most Recently Relevant to Health Maintenance Results * (ABNORMAL) LIPID PANEL W REFLEX MEASURED LDL (11/01/2014 7:46 AM REGULATORY COMPLIANCE ENGINEER)Component ValueRef RangeTest MethodAnalysis TimePerformed AtPathologist Signature CHOLESTEROL,NABEV679(H)100 - 199 mg/dL11/01/2014 8:[address] [facility]ENTERTRIGLYCERIDES233(H)<150 mg/dL11/01/2014 8:[address] [facility]ENTERHDL FMVSXVOFAAE87>40 mg/dL11/01/2014 8:[address] [facility]ENTERNON-HDL XWXFXELBMIJ857(H)<145 mg/dl11/01/2014 8:[address] [facility]ENTERCHOL/HDL RATIO4.30<4.50011/01/2014 8:[address] [facility] CENTERLDL WNOAERPKXPF047(H)<=130 mg/dL11/01/2014 8:[address] [facility] CENTERPATIENT RVIQKQNTAQNUA63/10/2015 8:47 AM [facility]pecimen (Source)Anatomical Location / LateralityCollection Method / VolumeCollection TimeReceived TimeBlood specimen (specimen)BLOOD SPECIMEN / UnknownVenipuncture / Dtqpzte5211/01/2014 7:46 AM REGULATORY COMPLIANCE ENGINEER 11/01/2014 7:46 AM REGULATORY COMPLIANCE ENGINEER Narrative Authorizing ProviderResult TypeResult StatusGretchen Dahle EhresmannCHEMISTRY Final ResultPerforming OrganizationAddressCity/State/ZIP CodePhone Number [facility] [address] [place] [address], [place] [phone] * ANTI HCV (11/01/2014 7:46 AM REGULATORY COMPLIANCE ENGINEER)ComponentValueRef RangeTest MethodAnalysis TimePerformed AtPathologist SignatureHEPATITIS C ANTIBODYNon-Reactive Non-Dcxmyryx07/10/2015 1:50 PM CSTALLSAN RAFA[facility] Specimen (Source)Anatomical Location / LateralityCollection Method / Volume Collection TimeReceived TimeBlood specimen (specimen)BLOOD SPECIMEN / Unknown Venipuncture / Grjaqwp0111/01/2014 7:46 AM CST11/01/2014 7:46 AM REGULATORY COMPLIANCE ENGINEER Narrative [facility] - 11/01/2014 1:50 PM REGULATORY COMPLIANCE ENGINEER Antibodies to HCV not detected; does not exclude the possibility of exposure to HCV. Authorizing ProviderResult TypeResult StatusGretchen Dahle EhresmannSEND OUTS Final ResultPerforming OrganizationAddressCity/State/ZIP CodePhone Number [facility] [employer] [facility] [address] [place] [address], [place] * XR MAMMO BILAT SCREEN FFDM (10/10/2014 1:32 PM REGULATORY COMPLIANCE ENGINEER)Anatomical RegionLaterality ModalityBREASTS, Breast Left, Breast RightBilateralMammographySpecimen (Source)Anatomical Location / LateralityCollection Method / VolumeCollection TimeReceived Time Impressions 10/11/2014 12:21 PM REGULATORY COMPLIANCE ENGINEER There is no radiographic evidence for malignancy. Recommend annual mammograms. A lay language report of this examination will be provided to the patient. MAMMOGRAM ASSESSMENT: ??ACR 1 Negative Narrative 10/11/2014 12:21 PM REGULATORY COMPLIANCE ENGINEER XR MAMMO BILAT SCREEN FFDM [G0202.0] CLINICAL HISTORY: ??This is an asymptomatic 59 y.o. patient. INDICATION FOR EXAM: Mammogram Screening. TECHNIQUE: CC & MLO views were obtained. This digital study was evaluated with the assistance of Computer-Aided Detection. ?? COMPARISON FILM: Yes 09/21/13 [facility] 09/18/12 [facility] FINDINGS: ??Mammographically, the breast tissue has scattered fibroglandular densities. ??There are no dominant masses, suspicious micro calcifications or areas of architectural distortion. Procedure Note Randy Gonzales MD - 10/11/2014 XR MAMMO BILAT SCREEN FFDM [G0202.0] CLINICAL HISTORY: This is an asymptomatic 59 y.o. patient. INDICATION FOR EXAM: Mammogram Screening. TECHNIQUE: CC & MLO views were obtained. This digital study was evaluatedwith the assistance of Computer-Aided Detection. COMPARISON FILM: Yes 09/21/13 [facility] 09/18/12 [facility] FINDINGS: Mammographically, the breast tissue has scatteredfibroglandular densities. There are no dominant masses, suspicious microcalcifications or areas of architectural distortion. IMPRESSION: There is no radiographic evidence for malignancy. Recommendannual mammograms. A lay language report of this examination will be provided to the patient. MAMMOGRAM ASSESSMENT: ACR 1 Negative Authorizing ProviderResult TypeResult StatusGretchen Dahle EhresmannMAMMOFinal Result from Last 3 Months or Most Recently Relevant to Health Maintenance Insurance * Guarantor: Marleen Zhou TypeRelation to PatientDate of BirthPhone Billing AddressPersonal/CtrwrzLwhz1955 [address] [place] [phone] * Guarantor: Saloni Partida AAc TypeRelation to PatientDate of PhoneBilling AddressPersonal/Ryhjbf4710/07/[address] [place] [id number] Advance Directives TypeDate RecordedPatient RepresentativeExplanationHealthcare Directive02/24/2007 health care directive, [facility], 02/24/07 Care Teams Team MemberRelationshipSpecialtyStart DateEnd Date Pcp, No PCP - General09/28/24
[2025-09-06 15:05] VITALS: BP 135/80; PULSE 95; RESP 18; TEMP 36.6; O2SAT 93
--- NOTE | 2025-09-06 15:11 | CRLHL7_ITS ---
For Patients: As a result of the Century Cures Act, medical imaging exams and procedure reports are released immediately into your electronic medical record. You may view this report before your referring provider. If you have questions, please contact your health care provider. Indication: Pain of left great toe Technique: Left foot, 3 views. Comparison: Left foot radiographs 07/09/2025. Findings/Impression: There is no acute fracture or dislocation. Unchanged fracture of the screw transfixing the 1st tarsometatarsal joint. Screws extending from the medial cuneiform to the 2nd metatarsal base and from the lateral cuneiform to the 3rd metatarsal base are intact. There is severe osteoarthrosis of the great toe MTP joint. Suspected erosions along the medial aspect of the 1st metatarsal head could reflect sequelae of gouty arthropathy. There is soft tissue swelling along the medial aspect of the great toe MTP joint, increased compared to prior, without calcified tophus. Additional scattered polyarticular osteoarthrosis is present. Os peroneum. Corticated ossicle distal to the tip of the medial malleolus consistent with sequelae of prior trauma. Plantar calcaneal enthesopathy. Dictated by Vita Asher MD @ 09/06/2025 3:31:34 PM (Electronically Signed)
--- NOTE | 2025-09-06 17:04 | ED.GENADULT ---
HPI - General Adult General Date Seen: 09/06/25 Chief complaint: Extremity Pain/Injury, Lower Stated complaint: L foot pain/injury Time Seen by Provider: 09/06/25 17:04 History of Present Illness HPI narrative: This is a 70-year-old female with a history of lumbar degenerative disc disease, hip osteoarthritis, GERD, prediabetes, elevated BMI, sleep apnea, hyperlipidemia, hypertension, presents to the ER this afternoon with pain her left big toe. She has a history of having a toe infection and a visit to the ER during which she had her toe drained about 2 months ago, in June. Per medical record I see that she was here on July 09, seen by Dr. Roa. Order those records she had had swelling of her big toe and had already been on 3 days of Augmentin prior to coming into the ER. She had application of LET, digital block with lidocaine/appy. She had a 1 cm linear incision with drainage of 45 mL of pus. She was instructed to continue on Augmentin. The information to get better after several days. She never needed to follow-up with her PCP. She had been doing well for about 2 months. Beginning early last week, about 6 or 7 days ago she started having new redness and swelling and pain in her big toe. Initially started on that medial side of the big toe, distal to the IP joint. No injury. Since then she has developed redness from that area all the way down to the IP joint, MCP joint and onto the dorsum of her 1st metatarsal skin. She has noted increasing pain and swelling ever since she was up and walking all day on Friday (she [facility]). She is having increasing pain and achiness that kept her up last night. She is concerned she may have another infection. She also has a friend who is a nurse who is concerned that she might actually be having gout, not an infection. She is not diabetic or immunosuppressed. She is not anticoagulated. She has no diagnosed history of gout. She has no history of kidney trouble. She does have a history of what is thought to have been upper GI bleeding that led to dizziness and syncope about 6 years ago, so she is cautious with NSAIDs. No persistent history of GERD or peptic ulcer disease. She is not on any PPIs. She has not had any recent lightheadedness or dizziness or weakness or other symptoms of anemia. No abdominal pain. Related Data Home Medications ?Medication ?Instructions ?Recorded ?Confirmed cholecalciferol (vitamin D3) 125 5,000 unit PO DAILY 10/24/22 09/06/25 mcg (5,000 unit) tablet diphenhydramine HCl 25 mg capsule 25 mg PO .Bedtime PRN 10/24/22 09/06/25 omega-3 fatty acids 1,000 mg 1,000 mg PO QDAY 10/24/22 09/06/25 capsule Previous Rx's ?Medication ?Instructions ?Recorded amlodipine 5 mg tablet 5 mg PO QDAY #90 tabs 11/23/24 citalopram 40 mg tablet 40 mg PO QDAY #90 tabs 11/23/24 hydrochlorothiazide 25 mg tablet 25 mg PO QDAY #90 tabs 11/23/24 lisinopril 10 mg tablet 10 mg PO QDAY #90 tabs 11/23/24 omeprazole 20 mg capsule,delayed 20 mg PO QDAY #90 caps 11/23/24 release simvastatin 10 mg tablet 10 mg PO QHS #90 tabs 11/23/24 albuterol sulfate 90 mcg/actuation 2 puff inhalation Q4H PRN 02/22/25 aerosol inhaler shortness of breath or wheezing #8.5 grams amoxicillin 875 mg-potassium 1 tab PO BID PRN #14 tabs 09/06/25 clavulanate 125 mg tablet colchicine 0.6 mg capsule 0.6 mg PO BID #28 caps 09/06/25 hydrocodone 5 mg-acetaminophen 325 1 tab PO Q6H PRN pain #10 tabs 09/06/25 mg tablet ibuprofen 600 mg tablet 600 mg PO Q8H PRN #21 tabs 09/06/25 Allergies Allergy/AdvReac Type Severity Reaction Status Date / Time cat dander Allergy Intermediate Verified 09/06/25 15:10 grass pollen Allergy Verified 09/06/25 15:10 dust Allergy Intermediate Uncoded 08/04/25 10:52 pollen Allergy Intermediate Uncoded 08/04/25 10:52 PFSH PFSH Medical History History of avascular necrosis of capital femoral epiphysis ?Z87.39 - Personal history of other diseases of the musculoskeletal system and connective tissue (ICD-10) Gastrointestinal hemorrhage due to nonsteroidal antiinflammatory drug ?K92.2 - Gastrointestinal hemorrhage, unspecified (ICD-10) ?T39.395A - Adverse effect of other nonsteroidal anti-inflammatory drugs [NSAID], initial encounter (ICD-10) Surgical History History of tonsillectomy ?Z90.89 - Acquired absence of other organs (ICD-10) History of fracture of foot (10/02/18) ?Z87.81 - Personal history of (healed) traumatic fracture (ICD-10) Social History Smoking Status: Former smoker Second hand tobacco smoke exposure: No How often do you have a drink containing alcohol: 4 or more times a week How many standard drinks containing alcohol do you have on a typical day: 1 or 2 AUDIT-C Alcohol total score: 4 Non-prescribed substance use: denies use Exam Narrative: Exam Narrative: Constitutional: Appears well-developed and well-nourished. Alert. Conversant. Non toxic. HENT: Head: Atraumatic. Nose: Nose normal. Mouth/Throat: Oral mucosa is clear and moist. no trismus. Pharynx normal. Tonsils symmetric. No tonsillar enlargement, erythema, or exudate. Eyes: Conjunctivae normal. EOM normal. Pupils equal, round, and reactive to light. No scleral icterus. Neck: Normal range of motion. Neck supple. No tracheal deviation present. Cardiovascular: Normal rate, regular rhythm. No gallop. No friction rub. No murmur heard. Symmetric radial artery pulses Pulmonary/Chest: Effort normal. No stridor. No respiratory distress. No wheezes. No rales. No rhonchi . Musculoskeletal: RUE: Normal range of motion. No tenderness. No deformity LUE: Normal range of motion. No tenderness. No deformity RLE: Normal range of motion. No edema. No tenderness. No deformity LLE: Normal range of motion in her hip, knee, ankle, foot. She does have redness and erythema affecting the entire left great toe with a small 1 cm area of pointing fluid just distal to the MTP joint. Possibly a gouty tophus the verses a small cutaneous abscess. This area is about a cm proximal to the proximal nail plate so I do not think anatomic really fits with paronychia. No periungual inflammation. She has a little bit of swelling over the MTP joint but no definite purulent fluid or joint effusion there. She has erythema on the big toe and extending onto the dorsum of the 1st metatarsal a couple of cm proximal to the MTP. Toes 2-5 are normal and not effective. No signs of foot ulcer. No evidence for any foot foreign body.. No edema. No tenderness. No deformity Lymph: No cervical adenopathy. Neurological: Alert and oriented to person, place, and time. Normal strength. CN II-VII intact. No sensory deficit. GCS eye subscore is 4. GCS verbal subscore is 5. GCS motor subscore is 6. Normal coordination Skin: Skin is warm and dry. No rash noted. No pallor. Normal capillary refill. Psychiatric: Normal mood. Normal affect. Const: Vital Signs, click to edit/add: Vital Signs - 24 hr 09/06/25 15:05 Temperature 97.8 F Pulse Rate [Right Pulse Oximeter] 95 Respiratory Rate 18 Blood Pressure [Ri ght Upper Arm] 135/80 Pulse Oximetry 93 Oxygen Delivery Me thod Room Air Course Vital Signs Vital signs: Initial Vital Signs Temperature 97.8 F 09/06/25 15:05 Temperature Source Temporal Artery Scan 09/06/25 15:05 Pulse Rate 95 09/06/25 15:05 Pulse Rhythm Regular 09/06/25 15:05 Pulse Strength 3+ Normal 09/06/25 15:05 Respiratory Rate 18 09/06/25 15:05 Blood Pressure 135/80 09/06/25 15:05 Blood Pressure Mean 98 09/06/25 15:05 Blood Pressure Position Sitting 09/06/25 15:05 Pulse Oximetry 93 09/06/25 15:05 Oxygen Delivery Method Room Air 09/06/25 15:05 Vital Signs Temperature 97.8 F 09/06/25 15:05 Pulse Rate 95 09/06/25 15:05 Respiratory Rate 18 09/06/25 15:05 Blood Pressure 135/80 09/06/25 15:05 Pulse Oximetry 93 09/06/25 15:05 Oxygen Delivery Method Room Air 09/06/25 15:05 Temperature 97.8 F 09/06/25 15:05 Pulse Rate 95 09/06/25 15:05 Respiratory Rate 18 09/06/25 15:05 Blood Pressure 135/80 09/06/25 15:05 Pulse Oximetry 93 09/06/25 15:05 Oxygen Delivery Method Room Air 09/06/25 15:05 Medical Decision Making MDM Narrative Medical decision making narrative: Very pleasant 70-year-old female who presents to the ER today with redness and swelling and pain involving her left big toe. Differential here would include infection with cellulitis, paronychia, abscess, septic arthritis as well as potential gouty arthritis or other inflammatory arthropathy causing her pain. X-rays were obtained by nurses at triage and are negative for any acute fracture. 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 She also has had previous surgery on her MTP joint and her screw in that area at is fractured (as was previously known). She has not had any recent trauma. Big concern here is determine whether not this is infectious or gouty. She does have a fluid collection just into the subcutaneous tissue distal to the IP joint. I think this might be a gouty tophus but we are going to try to aspirate it to get a wound culture and hopefully fluid for crystal analysis. Procedure: Aspiration of fluid collection Verbal consent from patient Sterile prep using Betadine Digital block using 5 mL of 0.25% bupivacaine. No epi. Anesthesia was achieved. I aspirated the fluid collection with an 18 gauge needle and was able to get out less than 1 cm of purulent fluid before the fluid pocket was completely deflated an empty. I was able to send this fluid for culture but there was not enough fluid to send for crystal analysis. No complications noted. Bacitracin an Band-Aid were applied. Ultimately we were only able to get enough fluid out of fluid pocket to send for culture but not for crystal analysis. Plan will be to treat for infection as well as gout. Will put her on Augmentin for infection. She understands that if culture grows an unusual strain of bacteria such as MRSA, will have to change antibiotics accordingly. Also discussed that this could be another gout flare. Will treat with colchicine and short course of ibuprofen. Recommend close follow-up with PCP to consider further workup for possible gout and consider long-term options such as allopurinol or other uric acid medications. At this point she is hemodynamically stable, afebrile, well appearing. I do not think she needs labs, blood cultures, IV antibiotics, or admission. X-rays do not show any evidence for fracture, osteomyelitis, requiring admission for surgical debridement. Precautions for return to the ER reviewed. Questions answered. Prescriptions for Augmentin for possible cellulitis; ibuprofen and colchicine for gout; Elma for pain. Opiate precautions reviewed Imaging Data XR L foot: Attestation: I have reviewed the pertinent imaging results. Radiologist's impression: Findings/Impression: There is no acute fracture or dislocation. Unchanged fracture of the screw transfixing the 1st tarsometatarsal joint. Screws extending from the medial cuneiform to the 2nd metatarsal base and from the lateral cuneiform to the 3rd metatarsal base are intact. There is severe osteoarthrosis of the great toe MTP joint. Suspected erosions along the medial aspect of the 1st metatarsal head could reflect sequelae of gouty arthropathy. There is soft tissue swelling along the medial aspect of the great toe MTP joint, increased compared to prior, without calcified tophus. Additional scattered polyarticular osteoarthrosis is present. Discharge Plan Discharge Clinical Impression: Cellulitis of great toe Patient Disposition: Home, Self-Care Condition: Stable Instructions: Cellulitis (ED), Gout (ED) Additional Instructions: As we discussed, at this time we do not know with certainty what is causing the redness and inflammation and pain in your left big toe. This could be an infection. I have sent a wound culture from the fluid that we aspirated from your toe. Please start on the antibiotic, Augmentin, today in taken twice daily for a week. Monitor the area of redness carefully. If it continues getting larger or if you have worsening pain, fever, weakness, or any problems, please come back to the ER right away. I am also concerned that your toe might be inflamed because you are having a flare of gout. Unfortunately, I was not able to get enough fluid out of your toe to allow for an analysis for gout crystals. We are going to treat you with ibuprofen and colchicine in case this might be Gout. Please follow-up with your regular doctor within 5-7 days for re-evaluation., remember, if you get worse, come back to the ER right away. For pain, you can rest her foot, keep it elevated, use ice packs 20 minutes every few hours. You can use [id number] Tylenol. If pain is uncontrolled by other means, you can take prescription pain killer (Elma). Use caution with Elma because it can cause dizziness, drowsiness, constipation, and can be addictive. Do not drive for 6 hours after taking the prescription pain killer. Prescriptions: New hydrocodone-acetaminophen 5-325 mg tablet 1 tab PO Q6H PRN (Reason: pain) Qty: 10 0RF amoxicillin-pot clavulanate 875-125 mg tablet 1 tab PO BID PRNQty: 14 0RF ibuprofen 600 mg tablet 600 mg PO Q8H PRNQty: 21 0RF colchicine 0.6 mg capsule 0.6 mg PO BID Qty: 28 0RF No Action cholecalciferol (vitamin D3) 125 mcg (5,000 unit) tablet 5,000 unit PO DAILY diphenhydramine HCl 25 mg capsule 25 mg PO .Bedtime PRN omega-3 fatty acids 1,000 mg capsule 1,000 mg PO QDAY hydrochlorothiazide 25 mg tablet 25 mg PO QDAY Qty: 90 3RF lisinopril 10 mg tablet 10 mg PO QDAY Qty: 90 3RF omeprazole 20 mg capsule,delayed release(DR/EC) 20 mg PO QDAY Qty: 90 3RF simvastatin 10 mg tablet 10 mg PO QHS Qty: 90 3RF citalopram 40 mg tablet 40 mg PO QDAY Qty: 90 3RF amlodipine 5 mg tablet 5 mg PO QDAY Qty: 90 3RF albuterol sulfate 90 mcg/actuation HFA aerosol inhaler 2 puff inhalation Q4H PRN (Reason: shortness of breath or wheezing) Qty: 8.5 2RF Follow Up/Referrals: Flaquita Borrero MD [Primary Care Provider, Internal Medicine] Stand Alone Forms: [facility] Info Instructions
== END 2025-09-06 18:03 | disposition home or self-care (01) ==
LOC: ED 17:53
PROVIDERS: Emergency Provider Emergency Medicine; PCP Internal Medicine
DX: L03.032 Cellulitis of left toe (principal)
CPT/HCPCS: 10160; 73630; 87070; 99282; 99284